=== PATIENT | female | born 1985 | race Caucasian/White ===

== ENCOUNTER 2021-10-07 14:06 | Outpatient (CLI) | payer BC | END 2021-10-07 14:07 | disposition home or self-care (01) | LOC: CSHLAB 14:06 | PROVIDERS: ATTEND Obstetrics & Gynecology | DX: Z20.822 Contact with and (suspected) exposure to COVID-19 (principal) | CPT/HCPCS: 87811 ==

== ENCOUNTER 2021-10-10 19:30 | Inpatient (IN) | payer BC ==
[2021-10-11] MEDS ORDERED: Butorphanol Tartrate 1 MG/ML VIAL SLOW IVP PRN (04:45)
[2021-10-11] MEDS ORDERED: Acetaminophen 500 MG TAB PO PRN (04:45)
[2021-10-11] MEDS ORDERED: hydrALAZINE 20 MG/ML VIAL SLOW IVP PRN ×2 (04:45→11:08)
[2021-10-11] MEDS ORDERED: Promethazine HCl 25 MG/ML VIAL IM PRN ×2 (04:45→11:08)
[2021-10-11] MEDS ORDERED: HYDROcodone/Acetaminophen 5/325 mg Tablet PO PRN ×2 (04:45)
[2021-10-11] MEDS ORDERED: NS w/ Oxytocin 30 units 500 ML IV SCH ×3 (04:45→11:15)
[2021-10-11] MEDS ORDERED: Ibuprofen 800 MG TAB PO PRN (04:45)
[2021-10-11] MEDS ORDERED: Lidocaine 1% (PF) 30 ML VIAL SC PRN (04:45)
[2021-10-11] MEDS ORDERED: Ondansetron PF 4 MG/2 ML Vial IVP PRN ×2 (04:45→11:08)
[2021-10-11 04:56] VITALS: BMI 29.8
[2021-10-11] MEDS: Misoprostol 100 MCG TAB VAG SCH ×2 (05:05→13:23)
[2021-10-11 05:06] LABS: Hemoglobin 12.2 g/dL (12.0-15.5); Mean Corpuscular HGB CONC 35.8 g/dL (32.0-36.0); Mean Corpuscular Hemoglobin 33.2 pg (27.0-33.0); Mean Corpuscular Volume 92.7 fl (81.6-98.3); Mean Platelet Volume 9.6 fl (7.4-10.4); Platelet Count 202 10x3/uL (150-450); RBC Distribution Width 13.5 % (11.5-14.5); Red Blood Cell (RBC) Count 3.68 10x6/uL (3.90-5.03); White Blood Cell (WBC) Count 6.8 10x3/uL (3.5-10.5)
[2021-10-11] MEDS: Lactated Ringer's 1,000 ML IV SCH ×2 (05:07→13:24)
[2021-10-11 05:39] LABS: Syphilis Antibody Nonreactive (Nonreactive); Syphilis Antibody Index 0.04 S/CO (<1.00 Non-Reactive)
[2021-10-11 05:40] LABS: Hep B Surf Ag Non-Reactive S/CO (NonReactive)
[2021-10-11] MEDS ORDERED: Preparation H Ointment 28 GM TUBE PR PRN (11:08)
[2021-10-11] MEDS ORDERED: Bisacodyl 10 MG SUPP PR PRN (11:08)
[2021-10-11] MEDS ORDERED: Misoprostol 200 MCG TAB VAG PRN (11:08)
[2021-10-11] MEDS ORDERED: Benzocaine-Menthol 82.5 ML CAN TOP PRN (11:08)
[2021-10-11] MEDS ORDERED: Milk Of Magnesia 30 ML UDCUP PO PRN (11:08)
[2021-10-11] MEDS ORDERED: Measles/Mumps/Rubella 10 MCG/0.5 ML VIAL SC ONE (11:08)
[2021-10-11] MEDS ORDERED: Methylergonovine 0.2 MG/ML VIAL IM PRN (11:08)
[2021-10-11] MEDS ORDERED: Lanolin Ointment 7 GM TUBE TOP PRN (11:08)
[2021-10-11] MEDS ORDERED: Varicella virus, LIVE 0.5 ML VIAL SC ONE (11:08)
[2021-10-11] MEDS ORDERED: Boostrix 0.5 ML (Tdap) VIAL (>/=7 yrs of age) IM ONE (11:08)
[2021-10-11] MEDS ORDERED: diphenhydrAMINE 25 MG CAP PO PRN (11:08)
[2021-10-11] MEDS: Ferrous Sulfate 325 MG TAB PO SCH (13:29)
[2021-10-11] MEDS: Ibuprofen 800 MG TAB PO SCH ×2 (14:15→21:13)
[2021-10-11] MEDS: Docusate 100 MG CAP PO SCH (20:33)
[2021-10-12] MEDS: Ibuprofen 800 MG TAB PO SCH ×2 (05:45→14:16)
[2021-10-12 08:05] VITALS: BP 101/60; TEMP 98.3
[2021-10-12] MEDS: Docusate 100 MG CAP PO SCH (08:51)
[2021-10-12] MEDS: Ferrous Sulfate 325 MG TAB PO SCH (08:51)
== END 2021-10-12 14:45 | disposition home or self-care (01) | DRG 807 ==
LOC: CSHLD 10-11 04:04 → CSHPP 10-11 13:13
PROVIDERS: ADMIT Obstetrics & Gynecology; ATTEND Obstetrics & Gynecology
PROC: 10E0XZZ Delivery of Products of Conception, External Approach (ICD-10-PCS; principal; 2021-10-11)
PROC: 3E0334Z Introduction of Serum, Toxoid and Vaccine into Peripheral Vein, Percutaneous Approach (ICD-10-PCS; 2021-10-11)
PROC: 3E0P7VZ Introduction of Hormone into Female Reproductive, Via Natural or Artificial Opening (ICD-10-PCS; 2021-10-11)
DX: O26.893 Other specified pregnancy related conditions, third trimester (principal); Z37.0 Single live birth; Z67.41 Type O blood, Rh negative; Z3A.40 40 weeks gestation of pregnancy; Z88.2 Allergy status to sulfonamides
CPT/HCPCS: 36415; 85027; 85461; 86780; 86850; 86900; 86901; 87340; 90384; 96372; J7120

== ENCOUNTER 2023-12-06 14:11 | Outpatient (CLI) | payer BC | END 2023-12-06 14:12 | disposition home or self-care (01) | LOC: CSHMAMMO 14:11 | PROVIDERS: ATTEND Obstetrics & Gynecology | DX: Z12.31 Encounter for screening mammogram for malignant neoplasm of breast (principal) | CPT/HCPCS: 77063; 77067 ==

== ENCOUNTER 2024-12-25 07:50 | Outpatient (CLI) | payer BC | END 2024-12-25 07:51 | disposition home or self-care (01) | LOC: CSHMAMMO 07:50 | PROVIDERS: ATTEND Obstetrics & Gynecology | DX: Z12.31 Encounter for screening mammogram for malignant neoplasm of breast (principal) | CPT/HCPCS: 77063; 77067 ==